=== PATIENT | female | born 1990 ===

== ENCOUNTER 2024-04-24 04:15 | Day surgery (SDC) | payer BC ==
[2024-04-20 15:20] VITALS: BMI 40.8
[2024-04-24 12:14] LABS: BASO % 0.8 % (0-2.0); EOS % 1.5 % (0-4.5); HEMATOCRIT 32.9 % (32.4-45.2); HEMOGLOBIN 11.1 GM/dL (10.7-15.3); LYMPH % 23.8 % (8-40); MCH 28.4 pg (25.7-33.7); MCHC 33.8 g/dl (32.0-36.0); MEAN CELL VOLUME 84.1 fl (80-96); MEAN PLT VOLUME 8.3 fl (7.5-11.1); NEUT % 66.9 % (42.8-82.8); PLATELET COUNT 316 10^3/uL (134-434); RBC 3.91 M/mm3 (3.60-5.2); RDW 14.8 % (11.6-15.6)
[2024-04-24] MEDS ORDERED: ONDANSETRON 4 MG/2 ML VIAL IVPUSH PRN (12:47)
[2024-04-24] MEDS ORDERED: LACTATED RINGERS SOLUTION 1,000 ML IV SCH (13:00)
[2024-04-24] MEDS ORDERED: ONDANSETRON 4 MG/2 ML VIAL ONE (13:04)
[2024-04-24] MEDS ORDERED: ceFAZolin SODIUM 1 GM VIAL ONE ×2 (13:45→13:53)
[2024-04-24] MEDS ORDERED: SODIUM CHLORIDE 0.9% P/F 10 ML VIAL IJ ONE (13:54)
[2024-04-24] MEDS: ceFAZolin 2 GRAM PREMIX BAG IVPB ONE (14:08)
[2024-04-24] MEDS: INDOMETHACIN 50 MG CAPSULE PO ONE (15:40)
[2024-04-24] MEDS ORDERED: ACETAMINOPHEN INJECTION 100 ML IVPB ONE (15:41)
[2024-04-24] MEDS: ACETAMINOPHEN 1000 MG/100 ML BAG IVPB PRN (15:44)
[2024-04-24 16:37] VITALS: RESP 18
[2024-04-24 18:16] VITALS: BP 117/64; PULSE 78
[2024-04-24 18:29] VITALS: TEMP 98.8
== END 2024-04-24 18:39 | disposition home or self-care (01) ==
LOC: JASU-SURG 04:15
PROVIDERS: ATTEND Obstetrics & Gynecology Maternal & Fetal Medicine
PROC: 0UVC7ZZ Restriction of Cervix, Via Natural or Artificial Opening (ICD-10-PCS; principal; 2024-04-24 13:00)
DX: O34.32 Maternal care for cervical incompetence, second trimester (principal); Z3A.14 14 weeks gestation of pregnancy
CPT/HCPCS: 36415; 85025; 86850; 86900; 86901; 94760; J0131